=== PATIENT | female | born 1975 | race Caucasian/White ===

== ENCOUNTER 2021-05-18 12:17 | Inpatient (IN) | payer MEDICAID ==
[~2021-05-18] VITALS: Ht 165.1 cm; Wt 99.5 kg
[2021-05-18 14:38] LABS: HEMATOCRIT 41.3 % (37.0-47.0); MEAN CELL VOLUME 93 fl (80.0-100.0); MEAN CORPUSCULAR HEMOGLOBIN 31 pg (27-31); MEAN CORPUSCULAR HGB CONC 34 g/dl (33.0-37.0); MEAN PLATELET VOLUME 8.7 fl (7.4-10.4); PLATELET COUNT 248 K/mm3 (130-400); RED BLOOD COUNT 4.46 M/mm3 (4.10-5.30); REDCELL DISTRIBUTION WIDTH-CV 13.2 % (11.5-14.5)
[2021-05-18 14:59] LABS: ALBUMIN 3.2 gm/dL (3.5-5.0); BILIRUBIN,TOTAL 0.4 mg/dL (0.2-1.2); CALCIUM 8.4 mg/dL (8.4-10.2); CREATININE, serum 0.77 mg/dL (0.57-1.11); POTASSIUM 3.5 mmol/L (3.5-4.5); TOTAL PROTEIN 6.8 gm/dL (6.2-8.1)
[2021-05-18 15:04] LABS: BAND 24 % (0-10); LYMPHOCYTE 18 % (20.0-51.0); NEUTROPHILS 51 % (42.0-75.2); PLATELET ESTIMATE NORMAL (NORMAL)
[2021-05-18 15:05] LABS: TROPONIN-I 0.02 ng/mL (0.00-0.033)
[2021-05-18 15:53] LABS: COLLECTION METHOD CLEAN CATCH
[2021-05-18 16:16] LABS: MUCOUS Present (NOT PRESENT); PH 5 (5-8); URINE APPEARANCE Hazy (CLEAR/HAZY); URINE BACTERIA Rare /hpf (NONE SEEN); URINE BILIRUBIN Negative (NEGATIVE); URINE BLOOD 1+ (NEGATIVE); URINE COLOR Amber (YELLOW); URINE GLUCOSE Negative (NEGATIVE); URINE KETONE 1+ (NEGATIVE); URINE LEUKOCYTE ESTERASE Negative (NEGATIVE); URINE NITRATE Negative (NEGATIVE); URINE PROTEIN(semi-quant) 2+ (NEGATIVE); URINE RBC 0-2 /hpf (0-2); URINE UROBILINOGEN Negative (NEGATIVE)
--- NOTE | 2021-05-18 18:36 | NUR ---
PT ARRIVED TO ROOM 316 VIA CART. ON 4 L NC. PT SOA WHILE TALKING. PT COMPLAINS OF INTERMITTENT LOWER ABD PAIN. A&O. VSS. ORIENTED PT TO ROOM AND CALL LIGHT. PT DENIES NEEDS AT THIS TIME.
[2021-05-18 20:10] VITALS: BP 100/56; PULSE 72; TEMP 98.3
[2021-05-19 00:39] VITALS: BP 98/51; PULSE 65; TEMP 97.6
[2021-05-19 04:00] VITALS: BP 93/53; PULSE 66; TEMP 98.8
--- NOTE | 2021-05-19 05:52 | NUR ---
NO LOOSE STOOLS REPORTED OVERNIGHT. 02 NEEDS SLIGHTLY INCREASED FROM 4L TO 5L NC PT WAS SATURATING 87 PERCENT ON 4L. PT INSTRUCTED TO PRONE, REPOSITION Q2, HYDRATE AND REST. PT VERBALIZES UNDERSTANDING. AT 0500 THIS AM PT REPORTS NAUSEA, PT PROVIDED CRACKERS, CARBONATED DRINK PRIOR TO MEDICAL MANAGMENT. THIS NURSE WILL CONTINUE TO FOLLOW. CALL LIGHT WITHIN REACH.
[2021-05-19 06:02] LABS: BASO % 0.2 % (0.0-2.0); GRAN # 4.8 K/mm3 (1.4-6.5); GRAN % 77.3 % (42.2-75.2); HEMATOCRIT 40.2 % (37.0-47.0); HEMOGLOBIN 13.7 g/dl (12.5-16.0); LYMPH % 15.4 % (20.0-51.0); MEAN CELL VOLUME 93 fl (80.0-100.0); MEAN CORPUSCULAR HEMOGLOBIN 32 pg (27-31); MEAN CORPUSCULAR HGB CONC 34 g/dl (33.0-37.0); MONO # 0.4 K/mm3 (0.1-0.6); MONO % 6.6 % (1.7-9.3); PLATELET COUNT 275 K/mm3 (130-400); RED BLOOD COUNT 4.33 M/mm3 (4.10-5.30); REDCELL DISTRIBUTION WIDTH-CV 13.1 % (11.5-14.5)
[2021-05-19 06:22] LABS: CALCIUM 8.2 mg/dL (8.4-10.2); CREATININE, serum 0.69 mg/dL (0.57-1.11); POTASSIUM 3.7 mmol/L (3.5-4.5)
--- NOTE | 2021-05-19 08:00 | NUR ---
Patient laying in bed, A&Ox4. VSS 6L NC O2, no reported SOB 90% sats. Nurse increased O2 to 7L and RT notified to reassess. IV CDI. Nurse encouraging patient in increase PO intake, patient states that she doesnt really have an appetite and has been nauseous. Denies pain and discomfort. Droplet/contact precautions in place. No further needs expressed. Call light within reach
[2021-05-19 08:34] VITALS: BP 106/59; PULSE 74; TEMP 95.8
--- NOTE | 2021-05-19 11:19 | NUR ---
The patient is COVID positive. SW contacted the patient to discuss discharge plan. The patient lives in [place] with her three daughters. They are 24, 20, and [id number]. The patient states that her mother, Amber (ph#[phone]), is taking care of them while she is here. She reports independence with ADLs and does not have any DME. The patient states that she does not have a PCP at this time and that she gets her medications from the [facility] in . She reports no difficulties obtaining her meds. The patient does not have a DPOA-HC in EMR and she was not interested in completing one at this time. She reports that she is not and she has two adult children. She reports that her oldest is nonverbal, in diapers, and a dependent. Her next of kin is her 20-year-old, Fariba. SW informed the patient this. The patient plans on returning home with her family upon discharge. The patient is currently on 6 liters of oxygen. SW to continue to monitor. *Discharge plan: home with family*
[2021-05-19 12:07] VITALS: BP 128/70; PULSE 78; TEMP 98.7
[2021-05-19 16:04] VITALS: BP 105/49; PULSE 73; TEMP 98.2
--- NOTE | 2021-05-19 18:48 | NUR ---
Patient in bed eating dinner, states that she feels better after switching to an oxymask. A&Ox3. VSS 10L oxymask, no reported SOB. IV CDI, fluids infusing. Has been able to take in PO without complaints of nausea. Denies pain and discomfort. Droplet/contact precautions inplace. Call light within reach
[2021-05-19 20:39] VITALS: BP 106/60; PULSE 67; TEMP 98.2
[2021-05-20 00:15] VITALS: BP 100/53; PULSE 63; TEMP 98.7
[2021-05-20 04:52] VITALS: BP 102/58; PULSE 67; TEMP 98.2
--- NOTE | 2021-05-20 05:52 | NUR ---
THIS NURSE DID NOT MAKE CONSULT CALL TO ID BUT CAN CONFIRM ID IS AWARE OF PT CONSULT. SEE ID NOTES.
--- NOTE | 2021-05-20 06:58 | NUR ---
PT 02 NEEDS REMAIN AT 15L OXYMASK, THIS MORNING PT SATURATING 96 PERCENT. NO LOOSE STOOLS OVERNIGHT. PT DENIES N/V/D. ALL NEEDS MET THIS SHIFT.
--- NOTE | 2021-05-20 07:36 | NUR ---
Pt. progressing w/ plan of care. Pt reporting nausea since last night. Pt. also requesting if supplemental oxygen can be lowered. Plan to administer nausea medicine and check vitals. All other needs addressed. Call light and belongings in reach.
[2021-05-20 07:52] VITALS: BP 104/57; PULSE 60; TEMP 97.9
[2021-05-20 12:05] VITALS: BP 113/68; PULSE 61; TEMP 97.9
--- NOTE | 2021-05-20 13:03 | NUR ---
Pt. currently on 11L O2 NC. Pt. showered and reports feeling better. Needs addressed, call light and belongings in reach.
--- NOTE | 2021-05-20 13:34 | NUR ---
This RN titrated pt. down to 9L NC. Pt.'s sat is 95%.
--- NOTE | 2021-05-20 16:03 | NUR ---
Pt. reports constipation, new order obtained from JAKE Oliva to give pt. PRN Miralax.
[2021-05-20 16:43] VITALS: BP 104/62; PULSE 56; TEMP 97.6
[2021-05-20 20:00] VITALS: BP 111/57; PULSE 58; TEMP 97.7
[2021-05-21] VITALS (7 sets, daily range): BP systolic 90–115; BP diastolic 48–72; PULSE 46–71; TEMP 97.4–98.2
--- NOTE | 2021-05-21 13:00 | NUR ---
Pt. progressing w/ plan of care. Pt. now on 3L, O2 sat WNL. Needs addressed, call light and belongings in reach. Pt. voiding and eating adequately. Pt. OOB independently in room.
--- NOTE | 2021-05-21 18:21 | NUR ---
Pt.'s HR on tele currently 41bpm. JAKE Loza notified. New orders obtained for EKG. Will check on the patient.
--- NOTE | 2021-05-21 20:50 | NUR ---
Initial shift assessment done- o2 at 3L/nc, no SOB at rest, VSS, Tele on SB, denies any diarrhea, was offered a snack and some pudding given per requests, no other issues noted
--- NOTE | 2021-05-21 22:45 | NUR ---
States having some heartburn- would like Tums- Denia JOSEPH called- orderd pepcid and tums- given to patient at this time.
[2021-05-22 00:40] VITALS: BP 98/53; PULSE 39; TEMP 98.5
[2021-05-22 04:42] VITALS: BP 97/50; PULSE 45; TEMP 98.7
--- NOTE | 2021-05-22 05:00 | NUR ---
States is nauseated-- will give Zofran as ordered. Tele remains SB, did get down to low 30,s during the night-B/P 98/50,s,, sleeping, non symptomatic, Denia JOSEPH aware-- cardiac consult ordered,
[2021-05-22 07:49] LABS: HEMATOCRIT 39.2 % (37.0-47.0); HEMOGLOBIN 13.3 g/dl (12.5-16.0); MEAN CELL VOLUME 93 fl (80.0-100.0); MEAN CORPUSCULAR HEMOGLOBIN 32 pg (27-31); MEAN CORPUSCULAR HGB CONC 34 g/dl (33.0-37.0); MEAN PLATELET VOLUME 9.3 fl (7.4-10.4); PLATELET COUNT 392 K/mm3 (130-400); REDCELL DISTRIBUTION WIDTH-CV 13.2 % (11.5-14.5)
--- NOTE | 2021-05-22 08:00 | NUR ---
PT DENIES PAIN, SOB, TIREDNESS, PT AOX4, MEDICATIONS GIVEN, ASSESSMENT PERFORMED, NO OTHER NEEDS
[2021-05-22 08:09] LABS: C-REACTIVE PROTEIN 0.95 mg/dL (0.00-0.50); CALCIUM 8.2 mg/dL (8.4-10.2); CREATININE, serum 0.73 mg/dL (0.57-1.11); POTASSIUM 4.2 mmol/L (3.5-4.5)
[2021-05-22 08:53] VITALS: BP 103/45; PULSE 40; TEMP 98.1
[2021-05-22] MEDS ORDERED: MONODOX100 PO ×2 (11:44→11:53)
[2021-05-22] MEDS ORDERED: OMNICEF 300MG300 MG PO ×2 (11:44→11:53)
[2021-05-22] MEDS ORDERED: DECADRON6 MG PO (11:45)
[2021-05-22] MEDS ORDERED: RT Albuterol HFA MDI IH (11:46)
[2021-05-22 12:44] VITALS: BP 99/54; PULSE 39; TEMP 98.2
[2021-05-22 16:55] VITALS: BP 108/58; PULSE 41; TEMP 97.7
--- NOTE | 2021-05-22 18:36 | NUR ---
IV TO LFA REMOVED, DISCHARGE EDUCATION PROVIDED, TELE REMOVED, ESCORTED OUT VIA WHEELCHAIR, NO OTHER NEEDS
== END 2021-05-22 18:20 | disposition home or self-care (01) | DRG 871 ==
LOC: COL.ER 12:17 → MEDICAL 14:41 → COL.ER 14:41 → MEDICAL 05-19 18:00
PROVIDERS: Emergency Medicine; Internal Medicine; Physician Assistant; ADMIT Internal Medicine
PROC: XW033E5 Introduction of Remdesivir Anti-infective into Peripheral Vein, Percutaneous Approach, New Technology Group 5 (ICD-10-PCS; principal; 2021-05-18)
PROC: 5A0935A Assistance with Respiratory Ventilation, Less than 24 Consecutive Hours, High Flow/Velocity Cannula (ICD-10-PCS; 2021-05-20)
DX: A41.89 Other specified sepsis (principal); U07.1 COVID-19; J12.82 Pneumonia due to coronavirus disease 2019; J96.01 Acute respiratory failure with hypoxia; D72.829 Elevated white blood cell count, unspecified; T38.0X5A Adverse effect of glucocorticoids and synthetic analogues, initial encounter; R00.1 Bradycardia, unspecified
CPT/HCPCS: 99223-AI; 99232-AI; 99233-AI; 99239; J0248; J0696; J1100; J1650; J2405; J7050; Q0249; Q9967

== ENCOUNTER → 2022-02-21 | Outpatient (CLI) | payer MEDICAID ==
[~2022-02-21] MED LIST: DECADRON6 MG PO; MONODOX100 PO; OMNICEF 300MG300 MG PO; RT Albuterol HFA MDI IH
[2022-02-21 17:23] LABS: BASO # 0.1 K/mm3 (0.0-0.2); BASO % 0.6 % (0.0-2.0); EOS # 0.3 K/mm3 (0.0-0.7); GRAN # 8.4 K/mm3 (1.4-6.5); GRAN % 63.6 % (42.2-75.2); HEMATOCRIT 41.5 % (37.0-47.0); HEMOGLOBIN 14.6 g/dl (12.5-16.0); LYMPH # 3.5 K/mm3 (1.2-3.4); MEAN CELL VOLUME 92 fl (80.0-100.0); MEAN CORPUSCULAR HEMOGLOBIN 32 pg (27-31); MEAN CORPUSCULAR HGB CONC 35 g/dl (33.0-37.0); MEAN PLATELET VOLUME 8.3 fl (7.4-10.4); MONO # 0.8 K/mm3 (0.1-0.6); MONO % 6.3 % (1.7-9.3); PLATELET COUNT 345 K/mm3 (130-400); RED BLOOD COUNT 4.52 M/mm3 (4.10-5.30); REDCELL DISTRIBUTION WIDTH-CV 12.1 % (11.5-14.5)
[2022-02-21 17:39] LABS: C-REACTIVE PROTEIN 0.87 mg/dL (0.00-0.50)
[2022-02-21 18:01] LABS: THYROID STIMULATING HORMONE 1.498 uIU/mL (0.350-4.940)
== END ==
LOC: COL.LAB 16:52
DX: R06.02 Shortness of breath (principal)

== ENCOUNTER → 2022-06-29 | Outpatient (CLI) | payer MEDICAID | LOC: COL.PUL 06-01 13:00 | DX: R06.02 Shortness of breath (principal) ==

== ENCOUNTER 2023-10-25 11:11 | Day surgery (SDC) | payer MEDICAID ==
[~2023-10-25] VITALS: Ht 165.1 cm; Wt 106.9 kg
[~2023-10-25 11:11] MED LIST changes: +LR 1,000 ML IV SCH; +Ondansetron 4 MG/2 ML VIAL IV PRN
[2023-10-25 12:14] VITALS: BP 127/87; PULSE 88; TEMP 97.1
[2023-10-25 12:35] VITALS: BP 107/63; PULSE 77
--- NOTE | 2023-10-25 12:35 | NUR ---
Myesha is transferred to holding area after colonoscopy with Dr. Rodrigues. She is awake and alert, pwd, wtih regular and unlabored respirations. denies pain or nausea. she is updated on discharge plan. wctm.
[2023-10-25 12:45] VITALS: BP 115/75; PULSE 73
--- NOTE | 2023-10-25 12:50 | NUR ---
muffin and apple juice provided. No problems with pain or nausea reported at this time.
[2023-10-25 13:00] VITALS: BP 115/68; PULSE 71
[2023-10-25 13:15] VITALS: BP 125/75; PULSE 73; TEMP 97.3
--- NOTE | 2023-10-25 13:33 | NUR ---
I reviewed dc and fu instructions with Myesha. She verbed understanding, and voices no questions or concerns at time of departure. She is escorted to exit via wheelchair.
== END 2023-10-25 13:37 | disposition home or self-care (01) ==
LOC: SDCO 11:11
DX: K52.89 Other specified noninfective gastroenteritis and colitis (principal); K92.1 Melena; E66.9 Obesity, unspecified; Z86.16 Personal history of COVID-19
CPT/HCPCS: J2704; J7120